=== PATIENT | female | born 1965 | race Caucasian/White ===

== ENCOUNTER 2018-03-05 09:45 | Emergency (ER) | payer BC ==
--- NOTE | 2018-03-05 10:12 | RAD ---
RIGHT KNEE 4 VIEWS: Date: 03/05/18 COMPARISON: None. HISTORY: Knee pain, fall. FINDINGS: No knee joint effusion, displaced fracture, or evidence of dislocation is seen. There is linear enthe sophyte formation at the insertion of the quadriceps tendon. IMPRESSION: No acute osseous abnormality. POS: [facility]
[2018-03-05] MEDS ORDERED: HYDROcodone/Acetaminophen 5/325 mg Tablet ONE (10:30)
== END 2018-03-05 10:31 | disposition home or self-care (01) ==
LOC: ERS 09:45
DX: S83.91XA Sprain of unspecified site of right knee, initial encounter (principal); I10 Essential (primary) hypertension; F41.9 Anxiety disorder, unspecified; F17.210 Nicotine dependence, cigarettes, uncomplicated; V00.131A Fall from skateboard, initial encounter

== ENCOUNTER 2018-09-01 17:31 | Emergency (ER) | payer BC, SELFPAY ==
--- NOTE | 2018-09-01 20:09 | ULT ---
FUltrasound pelvis Ultrasound transvaginal Doppler duplex: 09/01/2018 HISTORY: 53-year-old female with pelvic pain FINDINGS: Uterus measures 11 x 5 x 8.5 cm. Endometrial stripe: 0.8 cm (8 mm). At the right side of the uterine fundus, there is an approximately 2.8 x 2.6 x 1.8 cm region of sligh tly heterogeneous intermediate echogenicity which may or may not represent a fibroid. Free fluid in the cul-de-sac: None Right ovary: 3 x 2.5 x 1.5 cm Left ovary: 3.5 x 1.5 x 2 cm Flow demonstrated in both ovaries by Doppler 1 cm follicle in the right ovary. 1 x 1.5 cm follicle in left ovary. IMPRESSION: 1. Enlarged uterus, consistent with multiparous status. 2. Thickened endometrial stripe. 3. Probable right fundal uterine leiomyoma (fibroid).
[2018-09-04 18:06] LABS: Chlamydia by PCR Not Detected (NotDetected); GC by PCR Not Detected (NotDetected)
== END 2018-09-01 20:18 | disposition home or self-care (01) ==
LOC: ERS 17:31
DX: R10.2 Pelvic and perineal pain (principal); I10 Essential (primary) hypertension; F41.9 Anxiety disorder, unspecified; F90.9 Attention-deficit hyperactivity disorder, unspecified type; F17.210 Nicotine dependence, cigarettes, uncomplicated; Z79.899 Other long term (current) drug therapy
CPT/HCPCS: 76856; 87480; 87510; 87660

== ENCOUNTER 2020-09-20 17:27 | Observation (INO) | payer BC, SELFPAY ==
[2020-09-20] MEDS ORDERED: Albuterol 200 PUFF (6.7GM INHALER) ONE (21:41)
[2020-09-20 21:43] LABS: #Eosinphils 0.4 thou/uL (0.0-0.7); #Lymphocytes 1.4 thou/uL (1.20-3.40); %Basophils 0.6 % (0.0-1.0); %Eosinophils 5.2 % (0.0-10.0); %Lymphocytes 20.8 % (21.0-51.0); %Monocytes 14.1 % (0.0-10.0); %Neutrophils 59.2 % (42.0-75.0); Hemoglobin 10.3 g/dL (12.0-16.0); Mean Corpuscular HGB CONC 32.3 g/dL (32.0-36.0); Mean Corpuscular Hemoglobin 27.2 pg (27.0-31.0); Mean Corpuscular Volume 84.1 fL (78.0-98.0); Platelet Count 241 thou/uL (130-400); RBC Distribution Width 14.3 % (11.5-14.5); Red Blood Cell (RBC) Count 3.79 mill/uL (4.20-5.40); White Blood Cell (WBC) Count 6.7 thou/uL (4.8-10.8)
[2020-09-20 22:12] LABS: ALT (SGPT) 10 U/L (8-55); AST (SGOT) 18 U/L (5-34); Albumin 3.4 g/dL (3.5-5.0); Alkaline Phosphatase 55 U/L (40-110); Anion Gap 11 mmol/L (10-20); BUN (Urea Nitrogen) 19 mg/dL (9.8-20.1); Bilirubin, Total Less than 0.2 mg/dL (0.2-1.2); Calc. Creatinine Clearance 0 mL/min (70-130); Calcium 8.3 mg/dL (7.8-10.44); Carbon Dioxide 24 mmol/L (22-29); Chloride 108 mmol/L (98-107); Globulin 3.3 g/dL (2.4-3.5); Glucose 88 mg/dL (70-105); Potassium 3.9 mmol/L (3.5-5.1); Protein, Total 6.7 g/dL (6.0-8.3); Sodium 139 mmol/L (136-145)
[2020-09-20 22:17] LABS: BHCG - Serum Negative (NEGATIVE); Pregs Control Background? CLEAR/WHITE (CLR/WHITE); Pregs Control Bar Appear? YES (CONTROL BAR)
[2020-09-20 22:35] LABS: CKMB 2.8 ng/mL (0-6.6)
[2020-09-20] MEDS ORDERED: Aspirin Chewable 81 MG TAB ONE (23:11)
[2020-09-20] MEDS ORDERED: Azithromycin 500 MG VIAL ONE (23:11)
[2020-09-21] MEDS ORDERED: guaiFENesin ER 600 MG TAB PO SCH (01:15)
[2020-09-21 01:31] LABS: SARS-CoV-2 NAA Rapid Test Not Detected (NotDetected)
[2020-09-21 01:42] LABS: Troponin I Less than 0.010 ng/mL (< 0.028)
[2020-09-21] MEDS ORDERED: Ondansetron PF 4 MG/2 ML Vial IVP PRN (02:38)
[2020-09-21] MEDS ORDERED: Acetaminophen 325 MG TAB PO PRN (02:38)
[2020-09-21] MEDS ORDERED: Ondansetron ODT 4 MG TAB PO PRN (02:38)
[2020-09-21] MEDS ORDERED: Nitroglycerin 0.4 MG TAB (25 Tab Bottle) SL PRN (02:53)
[2020-09-21 03:05] VITALS: BMI 28.4
[2020-09-21 04:43] LABS: #Eosinphils 0.3 thou/uL (0.0-0.7); #Lymphocytes 1.3 thou/uL (1.20-3.40); #Monocytes 0.8 thou/uL (0.11-0.59); #Neutrophils 2.9 thou/uL (1.40-6.50); %Basophils 0.6 % (0.0-1.0); %Eosinophils 6.4 % (0.0-10.0); %Lymphocytes 23.4 % (21.0-51.0); %Monocytes 14.7 % (0.0-10.0); %Neutrophils 54.9 % (42.0-75.0); Hemoglobin 9.2 g/dL (12.0-16.0); Mean Corpuscular HGB CONC 31.2 g/dL (32.0-36.0); Mean Corpuscular Hemoglobin 26.2 pg (27.0-31.0); Mean Corpuscular Volume 83.9 fL (78.0-98.0); Mean Platelet Volume 8.7 fL (7.4-10.4); Platelet Count 203 thou/uL (130-400); RBC Distribution Width 14.2 % (11.5-14.5); Red Blood Cell (RBC) Count 3.52 mill/uL (4.20-5.40); White Blood Cell (WBC) Count 5.3 thou/uL (4.8-10.8)
[2020-09-21 05:03] LABS: Anion Gap 11 mmol/L (10-20); BUN (Urea Nitrogen) 14 mg/dL (9.8-20.1); Calc. Creatinine Clearance 132 mL/min (70-130); Calcium 7.7 mg/dL (7.8-10.44); Carbon Dioxide 24 mmol/L (22-29); Chloride 108 mmol/L (98-107); Glucose 101 mg/dL (70-105); Iron 17 ug/dL (50-170); Iron Binding Capacity, Total 309 mcg/dL (265-497); Potassium 3.5 mmol/L (3.5-5.1); Sodium 139 mmol/L (136-145)
[2020-09-21 05:07] LABS: Troponin I 0.015 ng/mL (< 0.028)
[2020-09-21 05:12] LABS: Iron 15 ug/dL (50-170); Iron Binding Capacity, Total 305 mcg/dL (265-497)
[2020-09-21 05:28] LABS: Ferritin 9.73 ng/mL (10-291)
[2020-09-21] MEDS: HYDROcodone/Acetaminophen 5/325 mg Tablet PO PRN ×2 (08:07→14:15)
[2020-09-21] MEDS: guaiFENesin ER 600 MG TAB PO SCH ×2 (08:07→14:15)
[2020-09-21] MEDS ORDERED: Aspirin Chewable 81 MG TAB PO SCH (09:00)
[2020-09-21] MEDS ORDERED: Enoxaparin Sodium 40 MG/0.4 ML SYRINGE SC SCH (09:00)
[2020-09-21] MEDS ORDERED: ADENOSINE 60 MG/20 ML VIAL ONE (10:10)
[2020-09-21 16:03] VITALS: BP 153/74; TEMP 98
[2020-09-21] MEDS ORDERED: Benzonatate 100 MG CAP PO SCH (21:00)
== END 2020-09-21 16:08 | disposition home or self-care (01) ==
LOC: ERS 17:27 → 2SE 23:44
PROVIDERS: ADMIT Student in an Organized Health Care Education/Training Program; ATTEND Hospitalist
DX: J20.9 Acute bronchitis, unspecified (principal); R07.89 Other chest pain; I10 Essential (primary) hypertension; F17.210 Nicotine dependence, cigarettes, uncomplicated; I07.1 Rheumatic tricuspid insufficiency; Z85.3 Personal history of malignant neoplasm of breast; Z86.711 Personal history of pulmonary embolism; Z79.899 Other long term (current) drug therapy; Z88.2 Allergy status to sulfonamides; Z88.7 Allergy status to serum and vaccine; Z88.8 Allergy status to other drugs, medicaments and biological substances; Z20.822 Contact with and (suspected) exposure to COVID-19
CPT/HCPCS: 0240U; 36415; 71045; 71275; 78452; 80048; 80053; 82553; 82607; 82728; 82746; 83540; 83550; 84484; 84703; 85025; 87635; 93005; 93017; 93306; 94760; 96365; 96366; 96372; A9500; G0378; J0153; J0456; J1650; U0003; U0005